=== PATIENT | female | born 1990 | race Caucasian/White ===

== ENCOUNTER 2017-01-26 02:33 | Emergency (ER) | payer SELFPAY ==
[~2017-01-26 02:33] MED LIST: ALBU8I INH; FOLI1TAB PO; METH2.5 PO
[2017-01-26 02:44] VITALS: BP 150/89; PULSE 109; RESP 18; TEMP 97.7; O2SAT 100
[2017-01-26] MEDS ORDERED: BUPIVACAINE/EPINEPHRINE 0.5% PF 30 ML VIAL NERV BLOCK ONE (02:45)
--- NOTE | 2017-01-26 02:47 | PD ---
HPI Chief Complaint: psychiatric evaluation Time Seen by Provider: 02:45 Travel History International Travel<30 days: No Contact w/Intl Traveler<30days: No History of Present Illness HPI Patient comes emergency Department under Lafleur act by police after she slit her left wrist with a kitchen knife reportedly secondary to being very depressed about she had 2 months ago per Lafleur act. Patient complains of pain over laceration left wrist. Denies any radiation of the pain. Reports her tetanus shot is up-to-date. Pain is worse with palpation. Denies anything making it better. Patient admits to drinking alcohol tonight. PFSH Past Medical History Asthma: Yes Social History Tobacco Use: No Substance Use: No Allergies-Medications (Allergen,Severity, Reaction): Coded Allergies: No Known Allergies (Unverified Adverse Reaction, Unknown, 01/26/17) Reported Meds & Prescriptions Reported Meds & Active Scripts Active Reported Depo-Medrol Inj (Methylprednisolone Acetate) 20 Mg/Ml Inj 20 Mg I-ARTICULR ONCE Proair Hfa 8.5 GM Inh (Albuterol Sulfate) 90 Mcg/Act Aer 1 Puff INH Q4H PRN 108 mcg/actuation Review of Systems Except as stated in HPI: all other systems reviewed are Neg Physical Exam Narrative GENERAL: Well-developed, overly nourished, in no acute distress, and non-ill appearing. SKIN: Focused skin assessment warm and dry. 2 lacerations noted left wrist volar surface. Neurovascular intact distally. HEAD: Atraumatic. Normocephalic. EYES: Pupils equal and round. EOMI. No scleral icterus. No injection or drainage. ENT: No nasal bleeding or discharge. Mucous membranes pink and moist. NECK: Trachea midline. Supple. No nuclear rigidity. CARDIOVASCULAR: Regular rate and rhythm. No murmur appreciated. RESPIRATORY: No accessory muscle use. No respiratory distress. Clear to auscultation. Breath sounds equal bilaterally. MUSCULOSKELETAL: No obvious deformities. No clubbing. No cyanosis. No edema. Full range of motion. Wrist: FROM and equal BL with passive flexion, extension, and pronation/supination. Capillary refill less than 2 seconds distal to injury and equal BL. FROM distal to injury and equal BL. Strength distal to injury equal BL. NV intact distal to injury. Flexion and extension of thumb equal BL. Equal strength and movement with abduction/adductions of BL fingers. 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 No tenderness to the anatomical snuffbox. NEUROLOGICAL: Awake and alert. No obvious cranial nerve deficits. Motor grossly within normal limits. Normal speech. PSYCHIATRIC: Appropriate mood and affect; insight and judgment abnormal. Data Data Last Documented VS Vital Signs Date Time Temp Pulse Resp B/P (MAP) Pulse Ox O2 Delivery O2 Flow Rate FiO2 01/26/17 02:44 97.7 109 18 150/89 (109) 100 Orders Orders Complete Blood Count With Diff (01/26/17 02:43) Comprehensive Metabolic Panel (01/26/17 02:43) Ed Urine Pregnancytest Poc (01/26/17 02:43) Psych Screen (01/26/17 02:43) Drug Screen, Random Urine (01/26/17 02:43) Alcohol (Ethanol) (01/26/17 02:43) Salicylates (Aspirin) (01/26/17 02:43) Tylenol (Acetaminophen) (01/26/17 02:43) Bupivacaine-Epi Pf 0.5% Inj (Sensorcaine (01/26/17 02:45) Acetaminophen (Tylenol) (01/26/17 04:30) Labs Laboratory Tests Test 01/26/17 03:10 01/26/17 03:27 White Blood Count 6.3 TH/MM3 Red Blood Count 4.51 MIL/MM3 Hemoglobin 14.2 GM/DL Hematocrit 42.0 % Mean Corpuscular Volume 93.0 FL Mean Corpuscular Hemoglobin 31.4 PG Mean Corpuscular Hemoglobin Concent 33.8 % Red Cell Distribution Width 13.7 % Platelet Count 257 TH/MM3 Mean Platelet Volume 8.2 FL Neutrophils (%) (Auto) 61.8 % Lymphocytes (%) (Auto) 27.4 % Monocytes (%) (Auto) 8.6 % Eosinophils (%) (Auto) 1.7 % Basophils (%) (Auto) 0.5 % Neutrophils # (Auto) 3.9 TH/MM3 Lymphocytes # (Auto) 1.7 TH/MM3 Monocytes # (Auto) 0.5 TH/MM3 Eosinophils # (Auto) 0.1 TH/MM3 Basophils # (Auto) 0.0 TH/MM3 CBC Comment DIFF FINAL Differential Comment Blood Urea Nitrogen 9 MG/DL Creatinine 0.81 MG/DL Random Glucose 95 MG/DL Total Protein 9.2 GM/DL Albumin 4.8 GM/DL Calcium Level 8.6 MG/DL Alkaline Phosphatase 67 U/L Aspartate Amino Transf (AST/SGOT) 26 U/L Alanine Aminotransferase (ALT/SGPT) 26 U/L Total Bilirubin 0.2 MG/DL Sodium Level 143 MEQ/L Potassium Level 4.0 MEQ/L Chloride Level 111 MEQ/L Carbon Dioxide Level 23.5 MEQ/L Anion Gap 9 MEQ/L Estimat Glomerular Filtration Rate 86 ML/MIN Salicylates Level LESS THAN 1.7 MG/DL Acetaminophen Level LESS THAN 2.0 MCG/ML Ethyl Alcohol Level 266 MG/DL Urine Opiates Screen NEG Urine Barbiturates Screen NEG Urine Amphetamines Screen NEG Urine Benzodiazepines Screen NEG Urine Cocaine Screen POS Urine Cannabinoids Screen NEG MDM Medical Decision Making Medical Screen Exam Complete: Yes Emergency Medical Condition: Yes Differential Diagnosis Metabolic disturbance, homicidal, suicidal, depression, alcohol intoxication, substance abuse, self-inflicted wound, accidental wound, other Narrative Course Patient was seen and examined. Labs were obtained and reviewed. Lacerations repaired. Patient medically cleared for further treatment and evaluation by psych. Final disposition per psych. Procedures Procedure Narrative LACERATION REPAIR LOCATION: Left wrist volar surface LENGTH: Approximately 2.5 cm in total length NUMBER OF STITCHES/MARY: One simple running REPAIR: Verbal consent was obtained. The area of the laceration was cleaned and prepped. The laceration was infiltrated with Marcaine with epi. The wound was copiously irrigated and explored without evidence of foreign body, bony involvement, ligament injury, tendon injury, or neurovascular injury. The wound was closed using 4-0 Ethilon. This was a single layer repair. A sterile dressing was applied by nurse. The patient was advised to keep the affected area as clean and dry as possible using soap and water. There were no complications. Patient tolerated the procedure well. LACERATION REPAIR LOCATION: Left wrist volar surface LENGTH: Approximately 2 cm in total length NUMBER OF STITCHES/MARY: One simple running REPAIR: Verbal consent was obtained. The area of the laceration was cleaned and prepped. The laceration was infiltrated with Marcaine with epi. The wound was copiously irrigated and explored without evidence of foreign body, bony involvement, ligament injury, tendon injury, or neurovascular injury. The wound was closed using 4-0 Ethilon. This was a single layer repair. A sterile dressing was applied by nurse. The patient was advised to keep the affected area as clean and dry as possible using soap and water. There were no complications. Patient tolerated the procedure well. Diagnosis Primary Impression: Self-inflicted laceration of wrist Qualified Codes: S61.512A - Laceration without foreign body of left wrist, initial encounter Additional Impressions: Alcohol intoxication Qualified Codes: F10.920 - Alcohol use, unspecified with intoxication, uncomplicated Substance abuse Medical clearance for psychiatric admission Patient Instructions: Care For Your Stitches (ED), General Instructions Additional Instructions: Keep wound dry and clean as possible using soap and water. Use Neosporin to promote healing. Have stitches removed in 10-14 days. Condition: Stable Mike Collins Jan 26, 2017 02:47
[2017-01-26] MEDS ORDERED: [UNRECOGNIZED DRUG - CODE] I-ARTICULR (02:50)
[2017-01-26] MEDS ORDERED: ALBUAER3 INH (02:50)
[2017-01-26 03:31] LABS: AUTOMATED NEUTROPHIL # 3.9 TH/MM3 (1.8-7.7); BASOPHIL % 0.5 % (0.0-2.0); EOSINOPHIL # 0.1 TH/MM3 (0-0.4); EOSINOPHIL % 1.7 % (0.0-4.0); HEMO FLAGS DIFF FINAL; LYMPH % 27.4 % (9.0-44.0); LYMPHOCYTE # 1.7 TH/MM3 (1.0-4.8); MEAN CORPUSCULAR HEMOGLOBIN 31.4 PG (27.0-34.0); MEAN CORPUSCULAR HGB CONC 33.8 % (32.0-36.0); MONO % 8.6 % (0.0-8.0); NEUT % 61.8 % (16.0-70.0); PLATELET COUNT 257 TH/MM3 (150-450); RED BLOOD COUNT 4.51 MIL/MM3 (4.00-5.30); RED CELL DISTRIBUTION WIDTH 13.7 % (11.6-17.2); WHITE BLOOD COUNT 6.3 TH/MM3 (4.0-11.0)
[2017-01-26 04:14] LABS: ALKALINE PHOSPHATASE 67 U/L (45-117); TOTAL BILIRUBIN ADULT 0.2 MG/DL (0.2-1.0)
[2017-01-26 04:20] LABS: ACETAMINOPHEN LESS THAN 2.0 MCG/ML (10.0-30.0); ALCOHOL 266 MG/DL (0-5); ALT (GPT) 26 U/L (10-53); ANION GAP 9 MEQ/L (5-15); AST (GOT) 26 U/L (15-37); BICARBONATE 23.5 MEQ/L (21.0-32.0); BLOOD UREA NITROGEN 9 MG/DL (7-18); CHLORIDE 111 MEQ/L (98-107); GLOMERULAR FILTRATION RATE 86 ML/MIN (>89); SODIUM (NA) 143 MEQ/L (136-145)
[2017-01-26] MEDS ORDERED: ACETAMINOPHEN 500 MG CPLT PO ONE (04:30)
[2017-01-26 05:00] VITALS: BP 128/71; PULSE 95; RESP 16; O2SAT 98
[2017-01-26] MEDS ORDERED: ACETAMINOPHEN 325 MG TAB PO ONE (09:15)
[2017-01-26] MEDS ORDERED: IBUPROFEN 600 MG TAB PO ONE (14:45)
[2017-01-26 19:03] VITALS: BP 126/61; PULSE 92; RESP 18; TEMP 98.7; O2SAT 99
--- NOTE | 2017-01-26 19:36 | PD ---
History of Present Illness Chief Complaint: Psychiatric Symptoms Time Seen by Provider: 19:00 Travel History International Travel<30 Days: No Contact w/Intl Traveler<30days: No Known affected area: No Legal Status Legal Status: Lafleur Act Lafle[place] Act Signed By: Nidia Templeton Lafleur Act Comment: YANIV signed: "JESSIE PETERSEN Badge#[id number], Case#[id number], 11/2016, 0218am History of Present Illness: History of Present Illness HPI Patient is a 26-year-old female with no previous psychiatric history who comes to the emergency department under Lafleur act initiated by police. The Lafleur act states about the patient was found at her boyfriend's house. She has 2 lacerations above her wrist. The patient upon presentation to the emergency department had a blood alcohol level of 266 and was positive for cocaine. Electronic medical record was reviewed no previous contact with [facility] psychiatry. The patient was monitored and secure environment and she presented no behavioral disturbance and no suicidality. She is seen. She is alert and oriented, calm, tearful at times, remorseful of having cut her wrists, wanting to be discharge home. She describes that she had been at the [facility] with her boyfriend and that they had been drinking during the whole day. She also admits to having used cocaine. She denies daily use of alcohol or cocaine. She denies that she was attempting to kill herself and states that she just wanted to hurt herself. She admits to feeling sad over the recent termination as well as due to recent breakup with her boyfriend. She denies any suicidal or homicidal ideation. She is not exhibiting significant symptoms of depression or anxiety and there is no evidence of any psychosis or brenda. Collateral information was obtained with her consent. I contacted her best friend and the person home she lives with, Arianna at [phone]. She reports that the patient has not needed any previous attempts and that she has not been depressed. She has no concerns if the patient were to be discharged. after she slit her left wrist with a kitchen knife reportedly secondary to being very depressed about she had 2 months ago per Lafleur act. Patient complains of pain over laceration left wrist. Denies any radiation of the pain. Reports her tetanus shot is up-to-date. Pain is worse with palpation. Denies anything making it better. Patient admits to drinking alcohol tonight. PFSH Past Medical History Asthma: Yes Respiratory: Yes (asthma) ?: Not : 1 Psychiatric History Psychiatric History Hx Psychiatric Treatment: Denies prior psych hx History of Inpatient Treatment: No Guns or firearms in home: No Social History Single female. Lives with a roommate. 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 Hx Alcohol Use: No Hx Tobacco Use: No Hx Substance Use: Yes (denies) Substance Use Type: Alcohol, Cocaine Other Substances Used: Admits to etoh and cocaine social use Hx of Substance Use Treatment: No Family Psychiatric History Negative Allergies-Medications (Allergen,Severity, Reaction): Coded Allergies: No Known Allergies (Unverified Adverse Reaction, Unknown, 01/26/17) Reported Meds & Prescriptions Reported Meds & Active Scripts Active Reported Depo-Medrol Inj (Methylprednisolone Acetate) 20 Mg/Ml Inj 20 Mg I-ARTICULR ONCE Proair Hfa 8.5 GM Inh (Albuterol Sulfate) 90 Mcg/Act Aer 1 Puff INH Q4H PRN 108 mcg/actuation Review of Systems Except as stated in HPI: all other systems reviewed are Neg Mental Status Examination Appearance: Appropriate Consciousness: Alert Orientation: x4 Motor Activity: Normal gait Speech: Unremarkable Language: Adequate Fund of Knowledge: Adequate Attention and Concentration: Adequate Memory: Unremarkable Mood: Sad Affect: Appropriate, Other (tearful) Thought Process & Associations: Intact, Logical, Goal directed Thought Content: Appropriate Hallucination Type: None Delusion Type: None Suicidal Ideation: No Suicidal Plan: No Suicidal Intention: No Homicidal Ideation: No Homicidal Plan: No Homicidal Intention: No Insight: Adequate Judgment: Adequate MDM Medical Decision Making Medical Record Reviewed: Yes Assessment/Plan 26-year-old female with no previous psychiatric history who in context of an argument with her boyfriend, intoxication with alcohol and cocaine, cut her wrist. She admits recent stressor of a recent termination but denies significant depression or anxiety. She does acknowledge appropriate sadness over the recent events. She denies any suicidal or homicidal ideation. There is no evidence of any unstable mental illness as defined under the Lafleur act. She contracts for safety. Is future oriented and has adequate family and social support. She is requesting to be discharged and does not meet criteria for continuing the Lafleur act. Supportive interventions as well as psychoeducation is provided. BA lifted. Psychiatrically clear for discharge Orders Orders Complete Blood Count With Diff (01/26/17 02:43) Comprehensive Metabolic Panel (01/26/17 02:43) Ed Urine Pregnancytest Poc (01/26/17 02:43) Psych Screen (01/26/17 02:43) Drug Screen, Random Urine (01/26/17 02:43) Alcohol (Ethanol) (01/26/17 02:43) Salicylates (Aspirin) (01/26/17 02:43) Tylenol (Acetaminophen) (01/26/17 02:43) Bupivacaine-Epi Pf 0.5% Inj (Sensorcaine (01/26/17 02:45) Acetaminophen (Tylenol) (01/26/17 04:30) Diet Regular Basic (01/26/17 Breakfast) Acetaminophen (Tylenol) (01/26/17 09:15) Diet Regular Basic (01/26/17 Lunch) Ibuprofen (Motrin) (01/26/17 14:45) Diet Regular Basic (01/26/17 Dinner) Results Vital Signs Date Time Temp Pulse Resp B/P (MAP) Pulse Ox O2 Delivery O2 Flow Rate FiO2 01/26/17 19:03 98.7 92 18 126/61 (82) 99 Room Air 01/26/17 05:00 95 16 128/71 (90) 98 Room Air 01/26/17 02:44 97.7 109 18 150/89 (109) 100 Laboratory Tests Test 01/26/17 03:10 01/26/17 03:27 White Blood Count 6.3 Red Blood Count 4.51 Hemoglobin 14.2 Hematocrit 42.0 Mean Corpuscular Volume 93.0 Mean Corpuscular Hemoglobin 31.4 Mean Corpuscular Hemoglobin Concent 33.8 Red Cell Distribution Width 13.7 Platelet Count 257 Mean Platelet Volume 8.2 Neutrophils (%) (Auto) 61.8 Lymphocytes (%) (Auto) 27.4 Monocytes (%) (Auto) 8.6 Eosinophils (%) (Auto) 1.7 Basophils (%) (Auto) 0.5 Neutrophils # (Auto) 3.9 Lymphocytes # (Auto) 1.7 Monocytes # (Auto) 0.5 Eosinophils # (Auto) 0.1 Basophils # (Auto) 0.0 CBC Comment DIFF FINAL Differential Comment Blood Urea Nitrogen 9 Creatinine 0.81 Random Glucose 95 Total Protein 9.2 Albumin 4.8 Calcium Level 8.6 Alkaline Phosphatase 67 Aspartate Amino Transf (AST/SGOT) 26 Alanine Aminotransferase (ALT/SGPT) 26 Total Bilirubin 0.2 Sodium Level 143 Potassium Level 4.0 Chloride Level 111 Carbon Dioxide Level 23.5 Anion Gap 9 Estimat Glomerular Filtration Rate 86 Salicylates Level LESS THAN 1.7 Acetaminophen Level LESS THAN 2.0 Ethyl Alcohol Level 266 Urine Opiates Screen NEG Urine Barbiturates Screen NEG Urine Amphetamines Screen NEG Urine Benzodiazepines Screen NEG Urine Cocaine Screen POS Urine Cannabinoids Screen NEG Diagnosis Primary Impression: Alcohol intoxication Additional Impressions: Substance abuse Substance induced mood disorder Psychiatrically Cleared: Yes Patient Instructions: General Instructions, Care For Your Stitches (ED) Additional Instructions: Keep wound dry and clean as possible using soap and water. Use Neosporin to promote healing. Have stitches removed in 10-14 days. Med/ Other Pt Specific Info: No Meds Exist/No RX given Disposition: 01 DISCHARGE HOME Condition: Stable Problem Qualifiers Primary Impression: Alcohol intoxication Qualified Codes: F10.920 - Alcohol use, unspecified with intoxication, uncomplicated MeltonJagruti Barbie Carlisle [facility] Jan 26, 2017 19:35
== END 2017-01-26 20:26 | disposition home or self-care (01) ==
LOC: NEPD 02:33 → NEPJ 20:26
DX: F10.129 Alcohol abuse with intoxication, unspecified (principal); F19.10 Other psychoactive substance abuse, uncomplicated; F19.94 Other psychoactive substance use, unspecified with psychoactive substance-induced mood disorder; J45.909 Unspecified asthma, uncomplicated
CPT/HCPCS: 12002; 80053; 80307; 84703; 85025

== ENCOUNTER → 2017-04-07 | Day surgery (SDC) | payer BC ==
[~2017-04-07] VITALS: Ht 165.1 cm; Wt 89.6 kg
[~2017-04-07] MED LIST changes: +*MEPERIDINE 25 MG INJ VIAL PERIprocedural Use ONLY ONE; +*morphine SULFATE 10 MG/ML PERIprocedure ONLY ONE; -ALBU8I INH; +ALBUAER3 INH; +BACITRACIN TOP OINT 15 GM TUBE ONE; +CHLORHEXIDINE GLUCONATE 2 % 1 PACK (2 CLOTHS) TOPICAL PRN; +DO NOT ADM ANY ANTICOAGULANT DRUGS PRN; -FOLI1TAB PO; +HYDROmorphone HCL PF 2 MG/ML VIAL IV PRN; +LACTATED RINGER'S 1000 ML INJ 1,000 ML IV ONE; +LACTATED RINGER'S 1000 ML INJ 1,000 ML IV SCH; +LACTATED RINGER'S 1000 ML IV PRN; +LIDOCAINE HCL 1% PF 5 ML SYRINGE OTHER ONE; +LIDOCAINE HCL 2% 50 ML VIAL ONE; -METH2.5 PO; +METOPROLOL TARTRATE 25 MG TAB PO PRN; +MIDAZOLAM HCL 2 MG/2 ML VIAL ONE; +ONDANSETRON HCL 4 MG/2 ML VIAL IV ONE; +ONDANSETRON HCL 4 MG/2 ML VIAL IV PUSH PRN; +POVIDONE IODINE 5% (ANTISEPSIS KIT) 4 APPLICATIONS EACH NARE PRN; +PROMETHAZINE INJ 25 MG/ML VIAL ONE; +PROPOFOL 200 MG/20 ML AMP IV ONE; +SODIUM CHLORID 0.9% 500 ML IV PRN; +[UNRECOGNIZED DRUG - CODE] I-ARTICULR; +ceFAZolin 1,000 MG/NS 100 ML IV SCH
[2017-04-07 17:30] VITALS: BP 104/64; PULSE 70; RESP 18; TEMP 98; O2SAT 98
--- NOTE | 2017-04-08 21:44 | MP ---
cc: SMITH AHUJA DATE OF SURGERY 04/07/17 PREOPERATIVE DIAGNOSIS 1. Laceration left wrist. 2. Injury to the median nerve left wrist. 3. Possible flexor tendon injury left wrist. POSTOPERATIVE DIAGNOSIS 1. Laceration left wrist. 2. Complete laceration median nerve left wrist 3. Scarring of the flexor tendons but no laceration of the flexor tendons left wrist. PROCEDURE 1. Median nerve repair left wrist using Avance Axogen nerve allograft as well as Axogen nerve protector conduit 2. Left carpal tunnel release. 3. Flexor tendon tenolysis left index flexor digitorum superficialis and profundus as well as all flexor tendons at the level of the wrist 4. Exploration penetrating wound left wrist. SURGEON Dr. Wendy Ahuja ANESTHESIA General and local [place] TIME One hour at 250 mmHg IMPLANTS 1. Avance Axogen nerve allograft 5mm x 3cm was implanted 2. Axogen nerve wrap measuring 7mm x 40mm INDICATIONS FOR PROCEDURE Salma Edwards is a 27-year-old right-hand dominant female who sustained a laceration of the volar aspect of the left wrist on 01/24/2017. She was seen in the emergency room by the emergency physician where the wound was sutured and she was discharged. Her first presentation to my office was on 02/20/2017. There was concern for partial versus complete injury to the median nerve and partial flexor tendon injury. EMG nerve conduction study was ordered and performed by Dr. Nieves on 03/02/2017 which was read as dispersion of the left median motor response and delay of the left median sensory response with dispersion of the action potential across the wrist. This was reviewed with Dr. Nieves. He felt that the majority of the nerve was intact at this time. The patient requested surgical intervention. Risks were explained to but were not limited to wound complications, infection, persistent paresthesias, long-term numbness and weakness in the hand, finding of nerve injury or flexor tendon injury at the time of the surgery and she elected to proceed. Patient was noted in the pre-operative holding area to have a healing burn over the volar aspect of the left thumb she sustained at work due to lack of sensation in the median nerve distribution. DESCRIPTION OF PROCEDURE The patient was identified in the preoperative holding area and the correct extremity was marked. The patient was taken to the operating room where anesthesia was induced. Left upper extremity was prepped, draped in normal sterile fashion. Tourniquet was inflated to 250 mmHg for one hour. Attention was first turned to the carpal tunnel. A longitudinal incision was made in line with the radial border of the ring finger. Palmar fascia was identified and incised. Transverse carpal ligament was identified and incised. Decompression of the median nerve was performed. There was noted to be complete laceration of the palmaris longus. The carpal tunnel incision was extended across the wrist and the incision utilized the prior laceration. At the level of the laceration, there was significant scarring around the median nerve. The median nerve was dissected off of the skin and then unfortunately it was found to be completely lacerated with significant neuroma at both end of the nerve. The flexor tendons were also encased in significant amount of scar which was tenolysed. There was no noted laceration to the flexor tendon to the fingers. At this time, I discussed the complete laceration of the median nerve with the patient's mother and she consented to proceed with Avance allograft nerve graft as well as nerve protector. The patient had also consented to surgery as indicated depending on the intraoperative findings. An Avance allograft nerve measuring 5 mm in diameter and approximately 2.8 cm in length was sutured into place after the neuroma was removed from each side of the nerve. This was sutured in place using 8-0 nylon. Then an Axogen nerve wrap was used measuring 7 x 40 millimeters to protect the nerve repair. This had minimal tension with a neutral wrist. Again, there was no noted laceration of the flexor tendons. Tourniquet was released prior to the nerve repair to allow for inspecting for healthy blood flow to the nerve. The wound was closed with Monocryl and nylon. The patient was placed into a dorsal blocking splint and awoken from anesthesia without any complications. Approximately 10 mL of 2% lidocaine without epinephrine was used for local anesthesia over the wrist. Postoperative course was discussed with the mother. The patient will likely be in a dorsal blocking splint for several months. She understands she will likely have longstanding paresthesias and weakness over the hand and may require additional surgeries. The case was also reviewed with Dr. Nieves. MD CHASITY Quintero/ /4:50 PM /9:23 PM JESICA
== END | disposition home or self-care (01) ==
LOC: HSDC 07:19
PROVIDERS: ATTEND Orthopaedic Surgery
DX: S61.512A Laceration without foreign body of left wrist, initial encounter (principal); S64.12XA Injury of median nerve at wrist and hand level of left arm, initial encounter
CPT/HCPCS: 01810; 25295; 26440; 64910; 88305; C9352; C9353; J0690; J1170; J2175; J2250; J2270; J2405; J2550; J3010; J7120; 88304